=== PATIENT | male | born 1945 | race Hispanic/Latino ===

== ENCOUNTER 2019-03-29 15:35 | Emergency (ER) | payer OTHER ==
[2019-03-29] MEDS ORDERED: ACETAMINOPHEN 325 MG TAB ONE (16:14)
== END 2019-03-29 16:48 | disposition home or self-care (01) ==
LOC: EDH 15:35
DX: S00.83XA Contusion of other part of head, initial encounter (principal); S89.92XA Unspecified injury of left lower leg, initial encounter; E07.9 Disorder of thyroid, unspecified; E78.00 Pure hypercholesterolemia, unspecified; I10 Essential (primary) hypertension; I48.91 Unspecified atrial fibrillation; Z79.899 Other long term (current) drug therapy; V49.49XA Driver injured in collision with other motor vehicles in traffic accident, initial encounter; Y93.89 Activity, other specified; Y92.89 Other specified places as the place of occurrence of the external cause; Y99.8 Other external cause status
CPT/HCPCS: 70450; 72125

== ENCOUNTER 2019-03-31 16:10 | Inpatient (IN) | payer MEDICARE ==
[~2019-03-31] VITALS: Ht 167.6 cm; Wt 84.0 kg
[2019-03-31] MEDS ORDERED: SODIUM CHLORIDE 0.9% 1000ML 1,000 ML IV ONE ×2 (16:36→20:40)
[2019-03-31] MEDS ORDERED: ACETAMINOPHEN-CODEINE 300/30MG TAB ONE (16:36)
[2019-03-31 16:44] LABS: BASOPHILS % (AUTO) 0.5 % (0.0-5.0); EOSINOPHILS % (AUTO) 1.6 % (0.0-8.0); HEMATOCRIT 41.7 % (42-54); LYMPHOCYTES % (AUTO) 24.3 % (21.0-51.0); MEAN CORPUSCULAR HEMOGLOBIN 31.8 pg (27.0-33.0); MEAN CORPUSCULAR HGB CONC 34.7 g/dL (32.0-36.0); MEAN CORPUSCULAR VOLUME 91.9 fL (79-99); NEUTROPHILS % (AUTO) 64.6 % (40.0-77.0); NUCLEATED RED BLOOD CELLS 0.1 % (0.0-0.19); PLATELET COUNT (AUTO) 241 K/uL (130-400); RED BLOOD CELL COUNT(AUTO) 4.54 MIL/uL (4.50-6.20); RED CELL DISTRIBUTION WIDTH 12.9 % (11.0-15.5); WHITE BLOOD COUNT (AUTO) 7.7 K/uL (4.8-10.8)
[2019-03-31 16:59] LABS: INR 0.95 (0.85-1.15); PARTIAL THROMBOPLASTIN TIME 32.2 SEC (26.3-35.5); POTASSIUM 4.1 mmol/L (3.5-5.1)
[2019-03-31 17:04] LABS: ALBUMIN 3.9 g/dL (3.5-5.0); BILIRUBIN,TOTAL 0.5 mg/dL (0.2-1.0); TOTAL PROTEIN, SERUM 7.4 g/dL (6.0-8.3)
[2019-03-31] MEDS ORDERED: IOHEXOL-350 75 ML VIAL IV ONE (17:42)
[2019-03-31 19:59] LABS: APPEARANCE,URINE Clear (CLEAR); BILIRUBIN,URINE Negative (NEGATIVE); COLOR,URINE Yellow (YELLOW); GLUCOSE, URINE (UA) Negative (NEGATIVE); KETONES,URINE Negative (NEGATIVE); LEUKOCYTE ESTERASE ,URINE Negative (NEGATIVE); NITRATE,URINE Negative (NEGATIVE); OCCULT BLOOD,URINE Negative (NEGATIVE); PH,URINE 5.5 (5.0-8.0); PROTEIN,URINE Negative (NEGATIVE); UROBILINOGEN,URINE 0.2 mg/dL (0.2-1.0)
[2019-03-31] MEDS ORDERED: MORPHINE SULFATE 2 MG/ML 1ML SYG IV PRN (20:15)
[2019-03-31] MEDS ORDERED: HEPARIN 25000 UNITS/250 ML D5W 250 ML IV ONE (20:41)
[2019-03-31] MEDS: FAMOTIDINE/PF 20 MG/2 ML VIAL IV SCH (21:00)
[2019-03-31] MEDS ORDERED: FAMOTIDINE/PF 20 MG/2 ML VIAL IV ONE (21:22)
[2019-03-31 21:31] LABS: BASOPHILS % (AUTO) 0.4 % (0.0-5.0); EOSINOPHILS % (AUTO) 1.4 % (0.0-8.0); HEMATOCRIT 40.4 % (42-54); LYMPHOCYTES % (AUTO) 23.1 % (21.0-51.0); MEAN CORPUSCULAR HEMOGLOBIN 31.9 pg (27.0-33.0); MEAN CORPUSCULAR HGB CONC 34.7 g/dL (32.0-36.0); MEAN CORPUSCULAR VOLUME 91.8 fL (79-99); MONOCYTES % (AUTO) 9.9 % (3.0-13.0); NEUTROPHILS % (AUTO) 65.2 % (40.0-77.0); PLATELET COUNT (AUTO) 227 K/uL (130-400); RED BLOOD CELL COUNT(AUTO) 4.39 MIL/uL (4.50-6.20); RED CELL DISTRIBUTION WIDTH 12.8 % (11.0-15.5); WHITE BLOOD COUNT (AUTO) 8.7 K/uL (4.8-10.8)
[2019-03-31 21:41] LABS: CREATININE 0.9 mg/dL (0.5-1.5)
[2019-03-31 21:46] LABS: ALBUMIN 3.7 g/dL (3.5-5.0); BILIRUBIN,TOTAL 0.6 mg/dL (0.2-1.0); TOTAL PROTEIN, SERUM 7.1 g/dL (6.0-8.3)
--- NOTE | 2019-03-31 22:00 | NUR ---
PT ARRIVED FROM ER. REPORT RECEIVED FROM SARAH DAVALOS. NO DISTRESS NOTED. PT HAS ACTIVE DVT. HEPARIN DRIP AT 1500UNITS PER HR. PENDING PTT AT 0300. PT IS PENDING HOME MEDS WHICH ARE AT HOME. PT ROOM AIR. CLEAR LUNG SOUNDS. ACTIVE BOWEL SOUNDS.
[2019-03-31 22:05] VITALS: BP 142/76
[2019-03-31] MEDS: SODIUM CHLORIDE 0.9% 1000ML 1,000 ML IV SCH (22:27)
[2019-03-31 23:32] VITALS: BP 136/71
[2019-04-01 03:21] VITALS: BP 131/72
[2019-04-01 03:30] LABS: BASOPHILS % (AUTO) 0.9 % (0.0-5.0); EOSINOPHILS % (AUTO) 2.2 % (0.0-8.0); HEMATOCRIT 40.9 % (42-54); LYMPHOCYTES % (AUTO) 27.3 % (21.0-51.0); MEAN CORPUSCULAR HEMOGLOBIN 31.8 pg (27.0-33.0); MEAN CORPUSCULAR HGB CONC 34.5 g/dL (32.0-36.0); MEAN CORPUSCULAR VOLUME 92.3 fL (79-99); MONOCYTES % (AUTO) 10.8 % (3.0-13.0); NEUTROPHILS % (AUTO) 58.8 % (40.0-77.0); NUCLEATED RED BLOOD CELLS 0.1 % (0.0-0.19); PLATELET COUNT (AUTO) 219 K/uL (130-400); RED BLOOD CELL COUNT(AUTO) 4.43 MIL/uL (4.50-6.20); RED CELL DISTRIBUTION WIDTH 12.5 % (11.0-15.5); WHITE BLOOD COUNT (AUTO) 7.9 K/uL (4.8-10.8)
[2019-04-01 07:21] VITALS: BP 124/67
[2019-04-01] MEDS ORDERED: HEPARIN 25000 UNITS/250 ML D5W 250 ML IV SCH (07:45)
[2019-04-01] MEDS ORDERED: HEPARIN SODIUM 5000UNIT/ML 1ML VIAL SQ PRN (07:45)
[2019-04-01 10:13] LABS: PARTIAL THROMBOPLASTIN TIME 78.1 SEC (26.3-35.5); PROTHROMBIN TIME 10.5 SEC (9.6-11.6)
[2019-04-01] MEDS ORDERED: AMIO200T5 PO (10:53)
[2019-04-01] MEDS ORDERED: METO25TA6 PO (10:53)
[2019-04-01] MEDS ORDERED: LEVO0.5P2 MC (10:53)
[2019-04-01] MEDS ORDERED: APIX5TAB PO (10:53)
[2019-04-01 11:44] VITALS: BP 128/66
[2019-04-01] MEDS ORDERED: LEVO50TA11 PO (12:00)
[2019-04-01] MEDS ORDERED: ACETAMINOPHEN 325 MG TAB ONE (12:07)
[2019-04-01] MEDS ORDERED: ACETAMINOPHEN 325 MG TAB PO PRN ×2 (13:00)
--- NOTE | 2019-04-01 13:02 | NUR ---
FLMalini Segovia met with pt who states he lives alone, daughters Shahzad Farr [phone] and Alden Mckay assist as needed. Pt is independent of all ADLS, uses [employer], no in home care services. Lai Pike drives as needed. Plan is home at mt Addendum: 04/01/19 at 1306 by MADDIE ONEILL SS Amended: Links added.
[2019-04-01] MEDS ORDERED: METOPROLOL TARTRATE 25 MG TAB ONE (15:09)
[2019-04-01] MEDS ORDERED: AMIODARONE HCL 200 MG TABLET PO ONE (15:10)
[2019-04-01] MEDS: CYANOCOBALAMIN (VITAMIN B-12) 1,000 MCG TABLET PO SCH (15:14)
[2019-04-01] MEDS: FOLIC ACID 1 MG TABLET PO SCH (15:14)
[2019-04-01] MEDS ORDERED: AMIODARONE HCL 200 MG TABLET PO SCH (15:15)
[2019-04-01] MEDS: FAMOTIDINE/PF 20 MG/2 ML VIAL IV SCH ×2 (15:16→21:13)
[2019-04-01] MEDS: METOPROLOL TARTRATE 25 MG TAB PO SCH ×2 (15:17→21:13)
[2019-04-01 15:26] VITALS: BP 134/93
--- NOTE | 2019-04-01 15:30 | NUR ---
DR TASIA SCOTT CONSULT UPDATE GIVEN, ORDERS RECEIVED, DR TASIA SCOTT STATED THAT PATIENT DOES CONTINUOUSLY GO IN AND OUT OF AFIB, OK TO RESUME LOPRESSOR 6.25MG PO BID, AMIODARONE 200MG EVERY 3RD DAY, AGREES TO STOP ELIQUIS, RESUME HEPARIN AND FOLLOW HEMATOLOGY RECOMMENDATIONS.
[2019-04-01] MEDS: SODIUM CHLORIDE 0.9% 1000ML 1,000 ML IV SCH (15:39)
[2019-04-01 19:36] VITALS: BP 122/82
[2019-04-01 23:51] VITALS: BP 125/63
[2019-04-02 04:05] VITALS: BP 120/68
[2019-04-02 04:07] LABS: BASOPHILS % (AUTO) 0.3 % (0.0-5.0); EOSINOPHILS % (AUTO) 1.8 % (0.0-8.0); HEMATOCRIT 42.6 % (42-54); LYMPHOCYTES % (AUTO) 32.3 % (21.0-51.0); MEAN CORPUSCULAR HEMOGLOBIN 31.5 pg (27.0-33.0); MEAN CORPUSCULAR VOLUME 92.7 fL (79-99); MONOCYTES % (AUTO) 10.4 % (3.0-13.0); NEUTROPHILS % (AUTO) 55.2 % (40.0-77.0); PLATELET COUNT (AUTO) 263 K/uL (130-400); RED BLOOD CELL COUNT(AUTO) 4.59 MIL/uL (4.50-6.20); WHITE BLOOD COUNT (AUTO) 7.6 K/uL (4.8-10.8)
[2019-04-02 04:11] LABS: INR 0.96 (0.85-1.15); PARTIAL THROMBOPLASTIN TIME 49.4 SEC (26.3-35.5); PROTHROMBIN TIME 10.1 SEC (9.6-11.6)
[2019-04-02 04:24] LABS: POTASSIUM 4.1 mmol/L (3.5-5.1); THYROID STIMULATING HORMONE 5.17 uIU/mL (0.36-3.74)
[2019-04-02] MEDS: LEVOTHYROXINE 50 MCG TABLET PO SCH (06:22)
[2019-04-02 07:13] VITALS: BP 108/62
[2019-04-02] MEDS ORDERED: AMIO200T5 PO (07:25)
[2019-04-02] MEDS ORDERED: AMIODARONE HCL 200 MG TABLET PO SCH (07:30)
[2019-04-02] MEDS: FAMOTIDINE 20MG TAB 20 MG TAB PO SCH ×2 (09:03→21:09)
[2019-04-02] MEDS: CYANOCOBALAMIN (VITAMIN B-12) 1,000 MCG TABLET PO SCH (09:03)
[2019-04-02] MEDS: METOPROLOL TARTRATE 25 MG TAB PO SCH ×2 (09:03→21:09)
[2019-04-02] MEDS: FOLIC ACID 1 MG TABLET PO SCH (09:03)
[2019-04-02] MEDS: SODIUM CHLORIDE 0.9% 1000ML 1,000 ML IV SCH (11:34)
[2019-04-02 11:35] VITALS: BP 118/68
[2019-04-02] MEDS ORDERED: RIVAROXABAN 15 MG TABLET PO SCH (14:45)
--- NOTE | 2019-04-02 14:50 | NUR ---
STATUS PT ASKING FOR ASSISTANCE TO BATHROOM. PT INFORMED DUE TO DVT TO LLE BEDREST IS ORDERED. PT STATES HE'S BEEN GETTING UP TO THE RESTROOM ALL THIS TIME. PT INFORMED REASON FOR BEDREST WHEN (+) DVT AND RISKS. PT STATES UNDERSTANDING & INSISTS ON BEING ASSISTED TO THE RESTROOM. PT ASSISTED TO THE RESTROOM. TOLERATED WELL. DR HEATH INFORMED.
[2019-04-02 15:38] VITALS: BP 120/59
[2019-04-02 19:54] VITALS: BP 129/62
[2019-04-02] MEDS: RIVAROXABAN 15 MG TABLET PO SCH (21:09)
[2019-04-03 00:27] VITALS: BP 128/76
[2019-04-03 03:49] VITALS: BP 133/72
[2019-04-03 04:49] LABS: MEAN CORPUSCULAR HEMOGLOBIN 31.8 pg (27.0-33.0); MEAN CORPUSCULAR HGB CONC 33.9 g/dL (32.0-36.0); MEAN CORPUSCULAR VOLUME 93.8 fL (79-99); NUCLEATED RED BLOOD CELLS 0.1 % (0.0-0.19); PLATELET COUNT (AUTO) 235 K/uL (130-400); RED BLOOD CELL COUNT(AUTO) 4.26 MIL/uL (4.50-6.20); RED CELL DISTRIBUTION WIDTH 12.9 % (11.0-15.5)
[2019-04-03 05:01] LABS: POTASSIUM 3.9 mmol/L (3.5-5.1)
[2019-04-03 05:04] LABS: EOSINOPHILS % (MANUAL) 3 % (1-6); LYMPHOCYTES % (MANUAL) 44 % (22-44); MAN.DIFF COMMENT-IMPRESSION MANUAL DIFFERENTIAL; MONOCYTES % (MANUAL) 8 % (2-9); SEGMENTED NEUTROPHILS % 45 % (40-70)
[2019-04-03] MEDS: LEVOTHYROXINE 50 MCG TABLET PO SCH (05:56)
[2019-04-03 07:27] VITALS: BP 118/67
--- NOTE | 2019-04-03 08:00 | NUR ---
AM ASSESSMENT PT LAYING IN BED, HOB ELEVATED 30 DEGREES, RESTING. A/O X 3. NO SOB. NO DISTRESS NOTED. DENIES CHEST PAIN OR DISCOMFORT. DENIES PALPITATIONS. TELE: SB 50s. DENIES N/V AND/OR DIARRHEA. LLE ELEVATED. BR W/BRP. UP W/ASSISTANCE. INSTRUCTED TO CALL FOR ASSISTANCE. CALL [facility] W/IN REACH.
[2019-04-03] MEDS: METOPROLOL TARTRATE 25 MG TAB PO SCH (08:15)
[2019-04-03] MEDS: CYANOCOBALAMIN (VITAMIN B-12) 1,000 MCG TABLET PO SCH (08:16)
[2019-04-03] MEDS: FOLIC ACID 1 MG TABLET PO SCH (08:16)
[2019-04-03] MEDS: FAMOTIDINE 20MG TAB 20 MG TAB PO SCH (08:16)
[2019-04-03] MEDS: RIVAROXABAN 15 MG TABLET PO SCH (08:16)
[2019-04-03] MEDS ORDERED: AMIODARONE HCL 200 MG TABLET PO SCH (09:00)
[2019-04-03] MEDS ORDERED: CYAN-52 PO (09:20)
[2019-04-03] MEDS ORDERED: FOLI1TAB15 PO (09:20)
[2019-04-03] MEDS ORDERED: RIVA15TA PO (09:20)
--- NOTE | 2019-04-03 10:10 | NUR ---
DISCHARGE VERBAL & WRITTEN DISCHARGE INSTRUCTIONS REVIEWED & GIVEN TO PT. QUESTIONS ENCOURAGED & CLARIFIED. PROPER CARE & MGT OF DVT REVIEWED. NEW PRESCRIBED MEDICATIONS REVIEWED. PRESCRIPTION GIVEN TO PT. SIGNED COPY OF PRESCRIPTION PLACED IN CHART. PT INFORMED TO SCHEDULE F/U APPTS W/DR SHI & DR Octavia SCOTT W/IN 2 WEEKS. OFFICE INFORMATION GIVEN. TELE RAHUL REMOVED. IV DISCONTINUED. PT TO GATHER PERSONAL BELONGINGS. WILL NOTIFY STAFF WHEN FAMILY ARRIVES TO TAKE PT HOME.
--- NOTE | 2019-04-03 11:05 | NUR ---
DISCHARGE PT TAKEN TO PRIVATE VEHICLE VIA WC BY Syed LEGER PCP, ACCOMPANIED BY FAMILY. NO DISTRESS NOTED.
[2019-04-03 11:30] VITALS: BP 120/68
== END 2019-04-03 11:05 | disposition home or self-care (01) | DRG 300 ==
LOC: EDH 16:10 → EDHIP 20:07 → 2DH 21:54
PROVIDERS: ADMIT Internal Medicine; ATTEND Internal Medicine
DX: I82.432 Acute embolism and thrombosis of left popliteal vein (principal); D68.59 Other primary thrombophilia; I48.0 Paroxysmal atrial fibrillation; E03.9 Hypothyroidism, unspecified; E78.00 Pure hypercholesterolemia, unspecified; E78.5 Hyperlipidemia, unspecified; I10 Essential (primary) hypertension; Z79.01 Long term (current) use of anticoagulants; Z86.718 Personal history of other venous thrombosis and embolism
CPT/HCPCS: 36415; 73590; 74177; 80048; 80053; 81003; 83690; 84443; 85025; 85610; 85730; 93005; 93970; G0378; J1644; J3490; J7030; Q9967

== ENCOUNTER 2019-04-04 22:52 | Emergency (ER) | payer MEDICARE, OTHER ==
[~2019-04-04 22:52] MED LIST: AMIO200T5 PO; CYAN-52 PO; FOLI1TAB15 PO; LEVO50TA11 PO; METO25TA6 PO; RIVA15TA PO
== END 2019-04-05 00:07 | disposition home or self-care (01) ==
LOC: EDH 22:52
DX: R60.0 Localized edema (principal); I48.91 Unspecified atrial fibrillation; I10 Essential (primary) hypertension; E03.9 Hypothyroidism, unspecified; Z86.718 Personal history of other venous thrombosis and embolism; Z90.49 Acquired absence of other specified parts of digestive tract
CPT/HCPCS: 99281

== ENCOUNTER 2020-10-12 22:54 | Inpatient (IN) | payer MEDICARE ==
[~2020-10-12] VITALS: Ht 167.6 cm; Wt 86.1 kg
[~2020-10-12 22:54] MED LIST changes: -AMIO200T5 PO; +AMIO200T68 PO
[2020-10-12] MEDS ORDERED: ALBUTEROL INHALER 90MCG/INH IH ONE (23:17)
[2020-10-12] MEDS ORDERED: ACETAMINOPHEN 500 MG TABLET ONE (23:18)
[2020-10-12 23:36] LABS: BASOPHILS % (AUTO) 0.8 % (0.0-5.0); HEMATOCRIT 41.2 % (42-54); LYMPHOCYTES % (AUTO) 13.3 % (21.0-51.0); MEAN CORPUSCULAR HEMOGLOBIN 30.3 pg (27.0-33.0); MEAN CORPUSCULAR VOLUME 89.2 fL (79-99); MONOCYTES % (AUTO) 6.3 % (3.0-13.0); NEUTROPHILS % (AUTO) 79.1 % (40.0-77.0); PLATELET COUNT (AUTO) 146 K/uL (130-400); RED BLOOD CELL COUNT(AUTO) 4.62 MIL/uL (4.50-6.20); RED CELL DISTRIBUTION WIDTH 11.9 % (11.0-15.5)
[2020-10-12 23:51] LABS: CREATININE 1.3 mg/dL (0.5-1.5); POTASSIUM 3.2 mmol/L (3.5-5.1)
[2020-10-12 23:56] LABS: ALBUMIN 3.6 g/dL (3.5-5.0); BILIRUBIN,TOTAL 0.9 mg/dL (0.2-1.0)
[2020-10-13] VITALS (7 sets, daily range): BP systolic 130–137; BP diastolic 62–81
[2020-10-13] MEDS: CEFTRIAXONE 1G VIAL IV SCH (01:45)
[2020-10-13] MEDS ORDERED: DiphenhydrAMINE HCL 50 MG/ML VIAL IV PRN (01:45)
[2020-10-13] MEDS: LACTATED RINGERS 1000ML 1,000 ML IV SCH ×2 (01:45→11:37)
[2020-10-13] MEDS ORDERED: ONDANSETRON 4MG INJ IV PRN (01:45)
[2020-10-13] MEDS ORDERED: DIPHENHYDRAMINE HCL 25 MG CAPSULE PO PRN (01:45)
[2020-10-13] MEDS ORDERED: ALBUTEROL 0.083% 2.5 MG/3 ML INH IH PRN (01:45)
[2020-10-13] MEDS ORDERED: MAG/ALUM/SIMETH 30 ML UDCUP PO PRN (01:45)
[2020-10-13] MEDS ORDERED: ACETAMINOPHEN 325 MG TAB PO PRN ×2 (01:45)
[2020-10-13] MEDS ORDERED: NITROGLYCERIN 0.4 MG SL TAB SL PRN (01:45)
[2020-10-13] MEDS ORDERED: LACTULOSE 20 GM/30 ML UDCUP PO PRN (01:45)
[2020-10-13 01:47] LABS: APPEARANCE,URINE Clear (CLEAR); BILIRUBIN,URINE Negative (NEGATIVE); COLOR,URINE Yellow (YELLOW); GLUCOSE, URINE (UA) Negative (NEGATIVE); KETONES,URINE Trace mg/dL (NEGATIVE); LEUKOCYTE ESTERASE ,URINE Negative (NEGATIVE); NITRATE,URINE Negative (NEGATIVE); OCCULT BLOOD,URINE Trace (NEGATIVE); PH,URINE 5.5 (5.0-8.0); PROTEIN,URINE POS 1+ mg/dL (NEGATIVE)
[2020-10-13] MEDS: RIVAROXABAN 20 MG TABLET PO SCH ×3 (02:00→08:26)
[2020-10-13] MEDS ORDERED: CEFTRIAXONE 1G VIAL ONE (02:03)
[2020-10-13 02:06] LABS: BACTERIA,URINE Rare /HPF (None Seen); RBC,URINE 0-1 /HPF (0-1); SQUAMOUS EPITHELIAL CELL,UR 0-2 /HPF (0-2); WBC,URINE 0-1 /HPF (0-1)
[2020-10-13] MEDS ORDERED: POTASSIUM CHLORIDE 20MEQ/100ML 100 ML IV PRN ×2 (02:15)
[2020-10-13] MEDS ORDERED: POTASSIUM CHLORIDE 10% ELIXIR 20 MEQ/15 ML UDCUP PO PRN (02:15)
[2020-10-13 06:28] LABS: BASOPHILS % (AUTO) 0.7 % (0.0-5.0); LYMPHOCYTES % (AUTO) 11.8 % (21.0-51.0); MEAN CORPUSCULAR HEMOGLOBIN 31.3 pg (27.0-33.0); MEAN CORPUSCULAR HGB CONC 35.4 g/dL (32.0-36.0); MEAN CORPUSCULAR VOLUME 88.3 fL (79-99); MONOCYTES % (AUTO) 5.9 % (3.0-13.0); NEUTROPHILS % (AUTO) 81.4 % (40.0-77.0); PLATELET COUNT (AUTO) 136 K/uL (130-400); RED BLOOD CELL COUNT(AUTO) 4.19 MIL/uL (4.50-6.20); WHITE BLOOD COUNT (AUTO) 4.6 K/uL (4.8-10.8)
[2020-10-13 06:42] LABS: BILIRUBIN,TOTAL 0.8 mg/dL (0.2-1.0); CREATININE 1.2 mg/dL (0.5-1.5); CRP QUANTITATIVE 172.9 mg/L (0.00-9.0); POTASSIUM 3.6 mmol/L (3.5-5.1); TOTAL PROTEIN, SERUM 6.4 g/dL (6.0-8.3)
[2020-10-13] MEDS: FAMOTIDINE 20MG VIAL IV SCH ×2 (08:26→20:01)
[2020-10-13] MEDS: METOPROLOL TARTRATE 25 MG TAB PO SCH ×2 (08:26→20:01)
[2020-10-13] MEDS: GUAIFENESIN-DM 200/20 MG 10 ML PO PRN ×2 (11:38→20:13)
[2020-10-13] MEDS ORDERED: MECL-160 PO (15:17)
[2020-10-14] MEDS: GUAIFENESIN-DM 200/20 MG 10 ML PO PRN ×3 (00:04→21:01)
[2020-10-14] MEDS: CEFTRIAXONE 1G VIAL IV SCH (01:21)
[2020-10-14 03:00] VITALS: BP 132/70
[2020-10-14 05:55] LABS: BASOPHILS % (AUTO) 0.7 % (0.0-5.0); EOSINOPHILS % (AUTO) 0.3 % (0.0-8.0); HEMATOCRIT 36.9 % (42-54); LYMPHOCYTES % (AUTO) 15.3 % (21.0-51.0); MEAN CORPUSCULAR HEMOGLOBIN 30.3 pg (27.0-33.0); MEAN CORPUSCULAR HGB CONC 33.9 g/dL (32.0-36.0); MEAN CORPUSCULAR VOLUME 89.3 fL (79-99); MONOCYTES % (AUTO) 6.2 % (3.0-13.0); NEUTROPHILS % (AUTO) 77.2 % (40.0-77.0); PLATELET COUNT (AUTO) 111 K/uL (130-400); RED BLOOD CELL COUNT(AUTO) 4.13 MIL/uL (4.50-6.20); RED CELL DISTRIBUTION WIDTH 12.1 % (11.0-15.5)
[2020-10-14 06:08] LABS: ALBUMIN 3.1 g/dL (3.5-5.0); BILIRUBIN,TOTAL 0.8 mg/dL (0.2-1.0); CREATININE 1.1 mg/dL (0.5-1.5); POTASSIUM 3.6 mmol/L (3.5-5.1); TOTAL PROTEIN, SERUM 6.6 g/dL (6.0-8.3)
[2020-10-14 06:23] LABS: CRP QUANTITATIVE 201.2 mg/L (0.00-9.0)
[2020-10-14] MEDS: MECLIZINE HCL 25 MG TABLET PO SCH ×3 (08:09→21:01)
[2020-10-14] MEDS: RIVAROXABAN 20 MG TABLET PO SCH ×4 (08:09→21:02)
[2020-10-14] MEDS: FAMOTIDINE 20MG VIAL IV SCH ×2 (08:09→21:02)
[2020-10-14] MEDS: METOPROLOL TARTRATE 25 MG TAB PO SCH ×2 (08:14→21:03)
[2020-10-14] MEDS ORDERED: AMIODARONE 200 MG TABLET PO SCH ×2 (08:15→10:15)
[2020-10-14 08:18] VITALS: BP 135/74
[2020-10-14] MEDS: BENZOCAINE/MENTH/CETYLPYRD CL 1 EACH LOZENGE MM PRN ×2 (10:11→21:01)
[2020-10-14] MEDS ORDERED: DEXAMETHASONE SOD PHOSPHATE 4 MG/ML 1ML VIAL IVP SCH (10:15)
[2020-10-14] MEDS: FLUTICASONE PROPIONATE 50MCG/SPRAY 16 GM BOTTLE EN SCH ×2 (11:26→21:01)
[2020-10-14] MEDS: DOXYCYCLINE 100MG+NS 250ML 250 ML IV SCH ×2 (11:26→21:03)
[2020-10-14 12:36] VITALS: BP 118/70
[2020-10-14] MEDS: ALBUTEROL 0.083% 2.5 MG/3 ML INH IH SCH ×2 (12:45→15:24)
[2020-10-14] MEDS ORDERED: FUROSEMIDE 100MG VIAL IVP SCH (13:15)
[2020-10-14] MEDS ORDERED: SOLU-MEDROL 40MG VIAL IVP SCH (14:00)
[2020-10-14 16:48] VITALS: BP 118/73
[2020-10-14 20:00] VITALS: BP 106/78
[2020-10-15] VITALS: BP 112/71
[2020-10-15] MEDS: CEFTRIAXONE 1G VIAL IV SCH (00:54)
[2020-10-15 04:00] VITALS: BP 111/68
[2020-10-15 05:23] LABS: BASOPHILS % (AUTO) 0.1 % (0.0-5.0); HEMATOCRIT 38.9 % (42-54); LYMPHOCYTES % (AUTO) 9.2 % (21.0-51.0); MEAN CORPUSCULAR HEMOGLOBIN 30.5 pg (27.0-33.0); MEAN CORPUSCULAR VOLUME 87.2 fL (79-99); MONOCYTES % (AUTO) 5.3 % (3.0-13.0); PLATELET COUNT (AUTO) 110 K/uL (130-400); RED BLOOD CELL COUNT(AUTO) 4.46 MIL/uL (4.50-6.20); RED CELL DISTRIBUTION WIDTH 12.3 % (11.0-15.5); WHITE BLOOD COUNT (AUTO) 8.5 K/uL (4.8-10.8)
[2020-10-15 05:34] LABS: ALBUMIN 2.7 g/dL (3.5-5.0); BILIRUBIN,TOTAL 0.6 mg/dL (0.2-1.0); TOTAL PROTEIN, SERUM 6.9 g/dL (6.0-8.3)
[2020-10-15 05:50] LABS: POTASSIUM 2.9 mmol/L (3.5-5.1)
[2020-10-15] MEDS ORDERED: KCL 20 MEQ ERTAB PO PRN (06:00)
[2020-10-15] MEDS ORDERED: POTASSIUM CHLORIDE 10% ELIXIR 20 MEQ/15 ML UDCUP PO PRN (06:00)
[2020-10-15] MEDS: KCL 20 MEQ ERTAB PO PRN ×3 (06:09→06:11)
[2020-10-15 08:03] VITALS: BP 105/62
[2020-10-15] MEDS: LEVOTHYROXINE 50 MCG TABLET PO SCH (09:32)
[2020-10-15] MEDS: FAMOTIDINE 20MG VIAL IV SCH ×2 (09:33→20:39)
[2020-10-15] MEDS: DOXYCYCLINE 100MG+NS 250ML 250 ML IV SCH ×2 (09:33→23:37)
[2020-10-15] MEDS: MECLIZINE HCL 25 MG TABLET PO SCH ×4 (09:33→20:38)
[2020-10-15] MEDS: FLUTICASONE PROPIONATE 50MCG/SPRAY 16 GM BOTTLE EN SCH ×2 (09:37→20:41)
[2020-10-15] MEDS: METOPROLOL TARTRATE 25 MG TAB PO SCH ×2 (09:38→20:41)
[2020-10-15 11:44] VITALS: BP 107/76
[2020-10-15 16:00] VITALS: BP 110/69
[2020-10-15 20:00] VITALS: BP 126/67
[2020-10-15] MEDS: RIVAROXABAN 20 MG TABLET PO SCH (20:00)
[2020-10-16] VITALS: BP 135/46
[2020-10-16] MEDS: CEFTRIAXONE 1G VIAL IV SCH (00:53)
[2020-10-16] MEDS: GUAIFENESIN-DM 200/20 MG 10 ML PO PRN (00:53)
[2020-10-16 04:00] VITALS: BP 110/65
[2020-10-16 05:27] LABS: BASOPHILS % (AUTO) 0.2 % (0.0-5.0); EOSINOPHILS % (AUTO) 0.1 % (0.0-8.0); HEMATOCRIT 36.4 % (42-54); LYMPHOCYTES % (AUTO) 10.6 % (21.0-51.0); MEAN CORPUSCULAR HEMOGLOBIN 31.1 pg (27.0-33.0); MEAN CORPUSCULAR HGB CONC 34.9 g/dL (32.0-36.0); MEAN CORPUSCULAR VOLUME 89.2 fL (79-99); MONOCYTES % (AUTO) 7.7 % (3.0-13.0); NEUTROPHILS % (AUTO) 80.6 % (40.0-77.0); PLATELET COUNT (AUTO) 142 K/uL (130-400); RED BLOOD CELL COUNT(AUTO) 4.08 MIL/uL (4.50-6.20); RED CELL DISTRIBUTION WIDTH 12.4 % (11.0-15.5); WHITE BLOOD COUNT (AUTO) 11.9 K/uL (4.8-10.8)
[2020-10-16 05:55] LABS: MAGNESIUM 2.3 mg/dL (1.80-2.40); POTASSIUM 3.6 mmol/L (3.5-5.1)
[2020-10-16] MEDS: LEVOTHYROXINE 50 MCG TABLET PO SCH (06:30)
[2020-10-16] MEDS ORDERED: LEVOTHYROXINE 50 MCG TABLET PO SCH (06:30)
[2020-10-16 07:30] VITALS: BP 107/57
[2020-10-16] MEDS: FAMOTIDINE 20MG VIAL IV SCH (09:00)
[2020-10-16] MEDS: METOPROLOL TARTRATE 25 MG TAB PO SCH (09:00)
[2020-10-16] MEDS: FLUTICASONE PROPIONATE 50MCG/SPRAY 16 GM BOTTLE EN SCH (09:00)
[2020-10-16] MEDS: MECLIZINE HCL 25 MG TABLET PO SCH (09:00)
[2020-10-16] MEDS ORDERED: CEFD300C3 PO (09:25)
[2020-10-16] MEDS ORDERED: DOXY100C5 PO (09:25)
[2020-10-16 11:00] VITALS: BP 140/80
== END 2020-10-16 12:00 | disposition home or self-care (01) | DRG 871 ==
LOC: EDH 22:54 → EDHIP 10-13 01:43 → 2AH 10-13 02:59 → 3DH 10-15 12:36
PROVIDERS: ADMIT Family Medicine; ATTEND Family Medicine
DX: A41.9 Sepsis, unspecified organism (principal); J18.9 Pneumonia, unspecified organism; D68.69 Other thrombophilia; J98.11 Atelectasis; I48.91 Unspecified atrial fibrillation; I10 Essential (primary) hypertension; E03.9 Hypothyroidism, unspecified; E11.9 Type 2 diabetes mellitus without complications; E66.9 Obesity, unspecified; E78.00 Pure hypercholesterolemia, unspecified; E78.5 Hyperlipidemia, unspecified; E87.6 Hypokalemia; Z20.822 Contact with and (suspected) exposure to COVID-19; Z79.01 Long term (current) use of anticoagulants; Z86.718 Personal history of other venous thrombosis and embolism; Z68.30 Body mass index [BMI] 30.0-30.9, adult; Z83.3 Family history of diabetes mellitus; Z86.16 Personal history of COVID-19
CPT/HCPCS: 36415; 71045; 71250; 74176; 80048; 80053; 81001; 82728; 82948; 83605; 83735; 83880; 84132; 84145; 84443; 85025; 85378; 86140; 86738; 86757; 87040; 87426; 87804; 87880; G0378; J0696; J1100; J1940; J2920; J3490; J7120; U0003